=== PATIENT | female | born 1960 | race Two or more races ===

== ENCOUNTER 2020-06-24 20:01 | Inpatient (IN) | payer MEDICAID, OTHER ==
[~2020-06-24] VITALS: Ht 167.6 cm; Wt 64.4 kg
[2020-06-24] MEDS ORDERED: IV NS 0.9% 1,000 ML IV ONE ×2 (20:30→22:00)
[2020-06-24] MEDS ORDERED: CEFTRIAXONE 1GM BAG (ER ONLY) 50 ML IV ONE ×2 (20:30→21:44)
--- NOTE | 2020-06-24 20:50 | NUR ---
[facility]IBRA FROM SNF TO ER BED 5. AWAKE, NON VERBAL. IN MOD RESP DISTRESS. GASPING AND DEEP BREATHING. BROUGHT IN FOR C/O DESATURATION REPROTED @ 86% ON RA AT THE FACILITY. PT ARRIVE AT THE HOSPITAL ON NON REBREATHER MASK ON FULL 02 SATTING 96%. PT IS ALSO REPORTED AT 450, BS UPON ARRIVAL WAS 297. PT IS ALSO NOTED HYPOTHERMIC @ 89.5F RECTALLY. PLACED ON BEAR HUGGER. PT IS PLACED ON HIGH FLOW O2, SATTING @ 97%. PT IS NOTED WITH A WOUND ON THE LEFT THIGH, SACRAL ULCER AND BILAT HEEL PRESSURE INJURY. WAS AT THE BEDSIDE FOR EVAL. ORDERS RECEIVED NOTED AND CARRIED OUT. IV LINE ESTABLISHED ON R HAND 22G. BLOOD DRAWN BY HIGH SCHOOL BAND TEACHER.
[2020-06-24 21:07] LABS: BASOPHILS # (AUTO) 0.1 /CMM (0.0-0.2); BASOPHILS % (AUTO) 0.4 % (0.0-2.0); HEMATOCRIT 31 % (33-45); HEMOGLOBIN 9.2 g/dL (11.5-14.8); LYMPHOCYTES # (AUTO) 1.4 /CMM (0.8-4.8); LYMPHOCYTES % (AUTO) 5.2 % (20.0-44.0); MEAN CORPUSCULAR HGB CONC 29 g/dl (31.0-36.0); MEAN CORPUSCULAR VOLUME 106 fL (82-100); MONOCYTES # (AUTO) 0.4 /CMM (0.1-1.30); MONOCYTES % (AUTO) 1.6 % (2.0-12.0); NEUTROPHILS # (AUTO) 24.4 /CMM (1.8-8.9); NEUTROPHILS % (AUTO) 92.8 % (43.0-81.0); PLATELET COUNT (AUTO) 59 /CMM (150-450); RED BLOOD CELL COUNT(AUTO) 2.95 MIL/uL (4.0-5.2); WHITE BLOOD COUNT (AUTO) 26.3 K/uL (4.3-11.0)
--- NOTE | 2020-06-24 21:14 | NUR ---
CALLED [facility], PAGED DR RAYA
[2020-06-24 21:21] LABS: CALCIUM, SERUM 8.4 mg/dL (8.5-10.1); CARBON DIOXIDE 16 mmol/L (21-32); CHLORIDE 114 mmol/L (98-107); CREATININE 3.7 mg/dL (0.6-1.3); GLUCOSE 338 mg/dL (74-106); POTASSIUM 4.2 mmol/L (3.5-5.1); SODIUM SERUM 145 mmol/L (136-145); UREA NITROGEN, BLOOD 46 mg/dL (7-18)
[2020-06-24 21:35] LABS: ALANINE AMINOTRANSFERASE 32 U/L (12-78); ALKALINE PHOSPHATASE 217 U/L (46-116); ASPARTATE AMINOTRANSFERASE 70 U/L (15-37); B-TYPE NATRIURETIC PEPTIDE 1836 PG/ML (0-125); BILIRUBIN,DIRECT 0.3 mg/dL (0.0-0.2); BILIRUBIN,TOTAL 0.6 mg/dL (0.2-1.0); TOTAL PROTEIN, SERUM 7.6 g/dL (6.4-8.2)
[2020-06-24 21:38] LABS: ALBUMIN 1.1 g/dL (3.4-5.0)
[2020-06-24] MEDS ORDERED: VANCOMYCIN 1 GM VIAL ONE (21:44)
[2020-06-24] MEDS ORDERED: PIPERACILLIN /TAZOBACTAM 3.375 G VIAL IV ONE (21:44)
--- NOTE | 2020-06-24 21:51 | NUR ---
DR. HO SPEAKING WITH TESFAYE (SON) VIA TELEPHONE REGARDING PLAN OF CARE
[2020-06-24 22:00] LABS: APPEARANCE,URINE Turbid (CLEAR); BILIRUBIN,URINE Negative (NEGATIVE); BLOOD, URINE Large Ery/uL (NEGATIVE); COLOR,URINE Yellow (YELLOW); KETONES,URINE Negative (NEGATIVE); LEUKOCYTE ESTERASE ,URINE Small (NEGATIVE); NITRITE, URINE Negative (NEGATIVE); PROTEIN,URINE >=300 mg/dl (NEGATIVE); UGLUCOSE Negative (NEGATIVE); UROBILINOGEN,URINE 0.2 EU/dL (0.2)
[2020-06-24] MEDS ORDERED: VANCOMYCIN 1 GM in IV D5W 250 ML IV ONE (22:00)
[2020-06-24] MEDS ORDERED: PIPERACILLIN /TAZOBACTAM 3.375 G in IV D5W 50 ML IV ONE (22:00)
[2020-06-24 22:03] LABS: BACTERIA,URINE 3+ /HPF (None Seen); RBC,URINE 21-50 /HPF (0-2); SQUAMOUS EPITHELIAL CELL,UR Few /HPF (None Seen)
[2020-06-24 22:04] LABS: YEAST,URINE Many /HPF (None Seen)
[2020-06-24 22:11] LABS: BAND % (MANUAL) 13 % (0.0-5.0); LYMPHOCYTES % (MANUAL) 5 % (16-48); MONOCYTES % (MANUAL) 1 % (0-11.0); NEUTROPHILS % (MANUAL) 81 (42-76)
--- NOTE | 2020-06-24 22:15 | NUR ---
DR. HO SPEAKING WITH DR. MORENO REGARDING ADMISSION
[2020-06-24] MEDS ORDERED: GABA-532 GT (22:20)
[2020-06-24] MEDS ORDERED: LACT10SO GT (22:20)
[2020-06-24] MEDS ORDERED: CRAN1CAP6 GT (22:20)
[2020-06-24] MEDS ORDERED: DOCU-141 GT (22:20)
[2020-06-24] MEDS ORDERED: MAGN400O21 GT (22:20)
[2020-06-24] MEDS ORDERED: ZINC50TA39 GT (22:20)
[2020-06-24] MEDS ORDERED: NA P133E RC (22:20)
[2020-06-24] MEDS ORDERED: CRAN3875 GT (22:20)
[2020-06-24] MEDS ORDERED: INSU100V39 SQ (22:20)
[2020-06-24] MEDS ORDERED: INSU100V7 SQ (22:20)
[2020-06-24] MEDS ORDERED: DOCU-159 RC (22:20)
[2020-06-24] MEDS ORDERED: MULT-754 GT (22:20)
[2020-06-24] MEDS ORDERED: IV NS 0.9% 1,000 ML IV PRN (22:28)
[2020-06-24] MEDS ORDERED: ONDANSETRON HCL/PF 4 MG/2 ML VIAL IVP PRN (22:30)
[2020-06-24] MEDS ORDERED: Z GUARD REMEDY 2 OZ OINT TP PRN (22:30)
[2020-06-24] MEDS ORDERED: ACETAMINOPHEN 650 MG/SUPP.RECT RC PRN (22:30)
[2020-06-24] MEDS ORDERED: MORPHINE SULFATE INJ 2 MG/ML DISP.SYRIN IV PRN (22:30)
--- NOTE | 2020-06-24 22:30 | NUR ---
PT NOTED WITH O2 ST @ 85% DESPITE BEING ON HI FLOW O2. MD MADE AWARE. RT NOTIFIED. PLACED ON O2 VIA NON REBREATHER @ 15LPM.
--- NOTE | 2020-06-24 22:47 | NUR ---
READY FOR INTUBATION, RN, RT AND MD AT BEDSIDE BP: 93/45, HR: 78, RR:23, 02: 88%,
--- NOTE | 2020-06-24 22:48 | NUR ---
ETOMIDATE 20MG IVP X 1
--- NOTE | 2020-06-24 22:49 | NUR ---
SUCCICHOLINE 120MG IVP X 1
--- NOTE | 2020-06-24 22:50 | NUR ---
VENT SETTING: AC14, VT450, O2 100%, +5PEEP.
--- NOTE | 2020-06-24 22:51 | NUR ---
PT INTUBATED. 22 @ LIP ET 7.5 BILAT LUNG SOUND APPRECIATED
--- NOTE | 2020-06-24 22:53 | NUR ---
PT IS ON BILAT SOFT RESTRAINT TO PREVENT DECANULATION
[2020-06-24] MEDS ORDERED: MEROPENEM 500 MG in IV NS 0.9% 50 ML IV ONE (23:30)
[2020-06-24 23:42] LABS: C-REACTIVE PROTEIN 11.7 mg/dL (0.0-0.9)
--- NOTE | 2020-06-24 23:44 | NUR ---
SWAB DONE AND SENT TO LAB
[2020-06-25] VITALS (78 sets, daily range): BP systolic 24–151; BP diastolic 14–92
[2020-06-25] MEDS ORDERED: NOREPINEPHRINE 4 MG/4 ML AMPUL IV ONE (01:10)
--- NOTE | 2020-06-25 01:14 | NUR ---
STARTED LEVOPHED PER VERBAL MD ORDER, 13.77 ML/HR L UPPER ARM 20G. CALLED NURSING SUP FOR PICC LINE INSERTION.
--- NOTE | 2020-06-25 02:05 | NUR ---
ATTEMPTED TO GIVE REPORT FOR ICU 254, WILL FOLLOW UP
--- NOTE | 2020-06-25 02:56 | NUR ---
REPORT GIVEN TO COLE GUDINO FOR ALEJA
--- NOTE | 2020-06-25 03:15 | NUR ---
DRILLING FLUIDS SPECIALIST ADMISSION NOTES, RECEIVED 66 YEAR OLD FEMALE ADMITTED FROM ER DEPARTMENT IN COMPANY OF 2NURSES AND 2 RTS, PATIENT ON MECHANICAL VENTILATOR, INTUBATED IN ER, UNDER MEDICAL CARE OF DR DOROTA COOK, WITH ADMITTING DX, SEPSIS/PNA/UTI/ACUTE RENAL FAILURE, PATIENT OBTUNDED, WITH EYES SEMI OPEN UNABLE TO TRACK AND UNABLE TO MAKE NEEDS KNOW, ON MECHANICAL VENTILATOR INTUBATED IN ER, TRACH/ETT 23/7.4, AC 14, TV 450, FI02 100%, PEEP 5, SR IN IP LITIGATION PARALEGAL, PIV LINE IN MARACNO 20G AND RIGHT HAND 22G BOTH PATENT AND INTACT, WITH LEVO INFUSING AT 02MCG AT HIS TIME TO MAINTAIN THE BLOOD PRESSURE, PATIENT WITH MULTIPLE WOUNDS, WILL PUT WOUND CONSULT TO F/U WITH TREATMENT, NOTED WITH LIQUID STOOL AND ORDER FOR FLEXISEAL REQUEST, F/O IN PLACED DRAINING YELLOW THICK AND SEDIMENTS IN URINE BY GRAVITY, BATH PROVIDED, AND ALL NEEDS RENDERED, S/R OF BED UP, BED LOW AND IN LOWEST POSITION, CALL LIGHT W/I REACH, WILL CONTINUE TO MONITOR CLOSELY. Addendum: 06/25/20 at 0741 by JESSICA WHITING RN 60 YEAR OLD FEMALE, PATIENT WITH TRACH ETT/7.5, WITH LEVO AT 0.2 MCG
--- NOTE | 2020-06-25 03:16 | NUR ---
PT TRANSFERRED TO ICU 254 PER ACLS PROTOCOL. RT, RN, TECH AT BEDSIDE
[2020-06-25] MEDS ORDERED: MEROPENEM 500 MG VIAL IV ONE (03:47)
[2020-06-25] MEDS ORDERED: NOREPINEPHRINE 8 MG in IV NS 0.9% 242 ML IV PRN (05:00)
--- NOTE | 2020-06-25 07:29 | NUR ---
DIANETICIST NOTES, PATIENT CONTINUE ON MECHANICAL VENTILATOR INTUBATED IN ER, TRACH/ETT 22/7.5, AC 14, TV 450, FI02 100%, PEEP 5, SR IN GROUNDWATER CONSULTANT WITH HR 90S AT THIS TIME, , PIV LINE IN MARCANO 20G AND RIGHT HAND 22G BOTH PATENT AND INTACT, WITH LEVO INFUSING AT 0.2 MCG AT HIS TIME , ALL NEEDS RENDERED, S/R OF BED UP, BED LOW AND IN LOWEST POSITION, CALL LIGHT W/I REACH, ENDORSED TO KATALINA RN FOR CONTINUATION OF CARE.
--- NOTE | 2020-06-25 07:30 | NUR ---
RN OPENING NOTES, PATIENT IS ON MECHANICAL VENTILATOR INTUBATED IN ER, TRACH/ETT 22/7.5, AC 14, TV 450, FI02 100%, PEEP 5, SR IN MIX CRUSHER OPERATOR WITH HR 90S AT THIS TIME, , PIV LINE IN MARCANO 20G AND RIGHT HAND 22G BOTH PATENT AND INTACT,AND WELL FLUSHED WITH LEVO INFUSING AT 0.4 MCG AT HIS TIME SAFETY MEASUREMENTS ARE IMPLEMENTED BY HOSPITAL POLICY. BED IS IN THE LOWEST POSITION, SIDE RAIL ARE UP X2.CALL LIGHT W/I REACH. WILL CONTUNIE TO MONITOR
--- NOTE | 2020-06-25 07:45 | NUR ---
RN NOTE CALLED FAMILY SON MIRNA TO GET VERBAL CONSENT SIGN FOR PICC LINE. SIGNED CONSENT IN THE CHART
[2020-06-25] MEDS: NOREPINEPHRINE 8 MG in IV NS 0.9% 242 ML IV PRN ×4 (07:48→23:16)
--- NOTE | 2020-06-25 07:58 | NUR ---
RT PATIENT REC'D ORALLY INTUBATED ON [facility] VENT WITH ORDERED SETTINGS. ABG DONE AND RESULTS GIVEN TO COLE DARDEN. FIO2 TITRATED TO 80%. PATIENT IN CRITICAL CONDITION. AMBU BAG AT HOB Addendum: 06/25/20 at 1056 by FLORECITA CHAVEZ RT Amended: Links added.
--- NOTE | 2020-06-25 08:10 | NUR ---
RN NOTES AFTER INTUBATION ABG WAS DRAWN TODAY. AND SETTING WAS CHANGED BY RT JONY DECREASE FIO2 TO 80% AND NO PEEP. CALLED DR JUNIOR LAUREN TO INFORM ORDERED TO GIVE BICARB AND RE TAKE ABG AFTER 30 MIN.
[2020-06-25 08:14] LABS: ABG BASE EXCESS -16.8 mmol/L; ABG OXYGEN SATURATION 96.6 % (92.0-98.5); ABG PCO2 36.6 mmHg (35.0-45.0); ABG PH 7.117 (7.350-7.450); ABG PO2 102.9 mmHg (75.0-100.0); AaDO2 573.5 mmHg; COHb 0.3 % (0.5-1.5); MetHb 0.2 % (0.0-1.5); O2Hb 96.1 % (94.0-97.0); SITE, ABG Right Radial
[2020-06-25] MEDS ORDERED: ETOMIDATE 2 MG/ML VIAL ONE (08:56)
[2020-06-25] MEDS ORDERED: SUCCINYLCHOLINE CHLORIDE 20 MG/ML VIAL ONE (08:56)
[2020-06-25] MEDS ORDERED: SODIUM BICARBONATE SYR 50 MEQ/50 ML DISP.SYRIN IV ONE (09:00)
[2020-06-25] MEDS: PANTOPRAZOLE 40 MG VIAL IV SCH (09:00)
[2020-06-25] MEDS: HYDROCORTISONE SOD SUCCINATE 100 MG/2 ML VIAL IV SCH ×2 (09:33→17:35)
--- NOTE | 2020-06-25 09:48 | NUR ---
RN NOTE BICARB WAS GIVEN AND ABG IS DONE WITH NO SIGNIFICANT CHANGES INFORMED DR JUNIOR LAUREN.
[2020-06-25 09:53] LABS: ABG BASE EXCESS -14.7 mmol/L; ABG OXYGEN SATURATION 92.2 % (92.0-98.5); ABG PCO2 36.3 mmHg (35.0-45.0); ABG PH 7.167 (7.350-7.450); ABG PO2 73.2 mmHg (75.0-100.0); AaDO2 459.1 mmHg; COHb 0.3 % (0.5-1.5); MetHb 0.3 % (0.0-1.5); O2Hb 91.6 % (94.0-97.0); SITE, ABG Right Brachial
--- NOTE | 2020-06-25 10:21 | NUR ---
RN NOTE WAITING FOR ANY FUTURE ORDERS FROM DR JUNIOR LAUREN
--- NOTE | 2020-06-25 12:00 | NUR ---
RN NOTES GOT ON ORDER FOR BICARBONATE IV TO START
--- NOTE | 2020-06-25 12:38 | NUR ---
RN NOTES CALLED PHARMACY AND SPOKE WITH [place]ES PHARMACIST FOR BICARBONATE IV
[2020-06-25] MEDS: MEROPENEM 500 MG in IV NS 0.9% 50 ML IV SCH (12:54)
--- NOTE | 2020-06-25 13:00 | NUR ---
RN NOTES NG TUBE INSERTED. DON'T PUT FLUSH SNYTHING UNTILL CHEST X RAY IS DONE
--- NOTE | 2020-06-25 13:27 | NUR ---
RN NOTES JUST BROUGHT BICARBONATE IV GOING TO START.
--- NOTE | 2020-06-25 13:28 | NUR ---
N NOTE BARE BumpTop MACHINE IS NOT WORKING CALLED [facility] HAVE TO BRING ANOTHER ONE
[2020-06-25] MEDS: Sodium Bicarbonate 100 MEQ in IV D5W 1,000 ML IV PRN (13:30)
[2020-06-25 14:32] LABS: ABG OXYGEN SATURATION 81.8 % (92.0-98.5); ABG PCO2 39.6 mmHg (35.0-45.0); ABG PH 7.043 (7.350-7.450); ABG PO2 57.7 mmHg (75.0-100.0); AaDO2 471.1 mmHg; COHb 0.1 % (0.5-1.5); MetHb 0.2 % (0.0-1.5); O2Hb 81.6 % (94.0-97.0); SITE, ABG Right Brachial; VENT MODE, BG ac 14 450 80% +0
--- NOTE | 2020-06-25 14:38 | NUR ---
RN CROW LEWIS IS HERE TO GET ABG TEST AND AFTER THE TEST CALLED AND TALKED TO JUNIOR LAUREN IN REGARDS TO INCREASE THE RATE TO 244 AND FIO2 TO 550. SHE SAID OK TO CHANGE THE SETTINGS.
--- NOTE | 2020-06-25 14:41 | NUR ---
RT PER LUNCHROOM ATTENDANT XIN ORDER PATIENT VENT SETTINGS CHANGED TO 24, 550, 100% +0. RN KATALINA AWARE Addendum: 06/25/20 at 1442 by FLORECITA CHAVEZ RT Amended: Links added.
--- NOTE | 2020-06-25 15:45 | NUR ---
RN NOTES DR STOKES RADIOLOGIST CALLED STATING THAT PICC LINE NEEDS TO BE PULLED BACK @2.5 CM AND ET TUBE NEEDS TO BE PULLED BACK 3 CM . NOTIFIED RT ENRIQUEZ PICC LINE NURSE
--- NOTE | 2020-06-25 17:15 | NUR ---
RT PER XIN PACHECO LAND SURVEYING MANAGER ETT RETRACTED 2CM AND SECURED AT 21CM AT THE LIP. RN KATALINA NOTIFIED
[2020-06-25] MEDS: THERAHONEY GEL 1.5 OZ TUBE TP SCH (17:21)
[2020-06-25] MEDS: DAKINS QUARTER STRENGTH (0.125%) 480 ML BOTTLE TOP SCH (17:21)
--- NOTE | 2020-06-25 17:22 | NUR ---
RN NOTE ETT RETRACTED 2CM AND SECURED AT 21CM AT THE LIP.
--- NOTE | 2020-06-25 19:08 | NUR ---
RN CLOSING NOTES, PATIENT IS ON MECHANICAL VENTILATOR INTUBATED IN ER, TRACH/ETT 21/7.5, AC 14, TV 450, FI02 100%, PEEP 5, SR IN POLICE PATROL OFFICER WITH HR 90S AT THIS TIME, , PIV LINE IN MARCANO 20G AND RIGHT HAND 22G. PICC LINE ON THE LEFT SIDE IS FLUSHING WELL, INTACT AND NO INFILTRATION NOTED. BOTH PATENT AND INTACT,AND WELL FLUSHED WITH LEVO INFUSING AT 0.5 MCG AT HIS TIME SAFETY MEASUREMENTS ARE IMPLEMENTED BY HOSPITAL POLICY. BED IS IN THE LOWEST POSITION, SIDE RAIL ARE UP X2.CALL LIGHT W/I REACH. WILL ENDORSE TO NIGHTSHIFTS FOR ALEJA
--- NOTE | 2020-06-25 19:30 | NUR ---
DATA CAPTURE CLERK OPENING NOTES, RECEIVED PATIENT IN BED INTUBATED/NOT SEDATED, TOLERATING VENT SETTING WELL. NO SOB OR ACUTE DISTRESS NOTED AT THIS TIME. NOTED BP LOW AND THE LEVO WAS RAISED TO 0.5MCG/KG/MIN BY AM RN. SINUS RHYTHM ON BED SIDE MONITOR. IV ON L UPPER ARM#20 RUNNING 0.5 MCG/KG/MIN AND SODIUM BICARB AT 75 ML/HR. AND RIGHT UPPER ARM PICC LINE AND RIGHT HAND #22. PATENT AND FLUSHING WELL. ALL SAFETY IMPLANTED, BED IN LOW/LOCKED POSITION CALL LIGHT WITHIN REACH WILL CONTINUE TO MONITOR.
[2020-06-25] MEDS: MICAFUNGIN SODIUM 100 MG in IV NS 0.9% 100 ML IV SCH (20:04)
[2020-06-25 20:45] LABS: BASOPHILS % (AUTO) 0.1 % (0.0-2.0); EOSINOPHILS % (AUTO) 0.1 % (0.0-6.0); HEMATOCRIT 28 % (33-45); HEMOGLOBIN 8.3 g/dL (11.5-14.8); LYMPHOCYTES # (AUTO) 2.6 /CMM (0.8-4.8); LYMPHOCYTES % (AUTO) 11.1 % (20.0-44.0); MEAN CORPUSCULAR HGB CONC 29 g/dl (31.0-36.0); MEAN CORPUSCULAR VOLUME 107 fL (82-100); MONOCYTES # (AUTO) 0.5 /CMM (0.1-1.30); NEUTROPHILS # (AUTO) 20.2 /CMM (1.8-8.9); NEUTROPHILS % (AUTO) 86.7 % (43.0-81.0); PLATELET COUNT (AUTO) 51 /CMM (150-450); RED BLOOD CELL COUNT(AUTO) 2.66 MIL/uL (4.0-5.2)
[2020-06-25] MEDS: PHENYLEPHRINE 100 MG in IV NS 0.9% 240 ML IV PRN (20:52)
[2020-06-25 20:56] LABS: CALCIUM, SERUM 7.8 mg/dL (8.5-10.1); CREATININE 3.7 mg/dL (0.6-1.3); MAGNESIUM 2.4 mg/dL (1.8-2.4); PHOSPHORUS 6.5 mg/dL (2.5-4.9); POTASSIUM 4.4 mmol/L (3.5-5.1)
[2020-06-25 21:31] LABS: BAND % (MANUAL) 12 % (0.0-5.0); LYMPHOCYTES % (MANUAL) 3 % (16-48); METAMYELOCYTES % 3 % (0-0); MONOCYTES % (MANUAL) 1 % (0-11.0)
[2020-06-25 21:43] LABS: D-DIMER 9.57 mg/L(FEU (0.17-0.50)
[2020-06-25 21:48] LABS: WHITE BLOOD COUNT (AUTO) 23.2 K/uL (4.3-11.0)
[2020-06-25 21:50] LABS: NEUTROPHILS % (MANUAL) 81 (42-76)
--- NOTE | 2020-06-25 23:15 | NUR ---
PATIENT BP LOW, 75/44 @2014. LEVO WAS RAISED BY PROTOCOL TO THE MAX. BP STILL LOW 60/25. DR RAYA WAS CONTACTED. SARATH WAS ORDER AND STARTED AT 2052 @0.1 MCG/KG/MIN AND LOWERED TO 0.05 AT 2200 WITH THE BP OF 133/64. NEW WAS HOLD AT 2245 WITH THE BP OF 133/57. LEVO WAS LOWERED TO 0.8 AT 2300 AND BP STABLE, SYSTOLIC >90. PATIENT IS IN NO DISTRESS AND NO SOB NOTED, WILL CONTINUE TO MONITOR THE PATENT CLOSELY.
[2020-06-26] VITALS (52 sets, daily range): BP systolic 53–125; BP diastolic 26–85
[2020-06-26] MEDS: HYDROCORTISONE SOD SUCCINATE 100 MG/2 ML VIAL IV SCH ×3 (01:22→18:23)
[2020-06-26] MEDS: MEROPENEM 500 MG in IV NS 0.9% 50 ML IV SCH ×2 (01:22→14:09)
--- NOTE | 2020-06-26 02:00 | NUR ---
PATIENTS BP IS STABLE. LEVO IS RUNNING AT 0.8 MCG/KG/MIN. SARATH IS STILL ON HOLD. NO SOB OR ACUTE DISTRESS NOTED. WILL CONTINUE TO MONITOR THE PATIENT CLOSELY.
[2020-06-26] MEDS: NOREPINEPHRINE 8 MG in IV NS 0.9% 242 ML IV PRN ×2 (02:30→05:29)
[2020-06-26] MEDS ORDERED: NOREPINEPHRINE 8MG/250ML RTU 250 ML IV ONE (04:41)
[2020-06-26 06:55] LABS: BASOPHILS # (AUTO) 0.1 /CMM (0.0-0.2); BASOPHILS % (AUTO) 0.2 % (0.0-2.0); HEMATOCRIT 27 % (33-45); HEMOGLOBIN 7.6 g/dL (11.5-14.8); LYMPHOCYTES # (AUTO) 2.9 /CMM (0.8-4.8); LYMPHOCYTES % (AUTO) 8.7 % (20.0-44.0); MEAN CORPUSCULAR HGB CONC 28 g/dl (31.0-36.0); MEAN CORPUSCULAR VOLUME 110 fL (82-100); MONOCYTES % (AUTO) 3.1 % (2.0-12.0); NEUTROPHILS # (AUTO) 29.1 /CMM (1.8-8.9); PLATELET COUNT (AUTO) 58 /CMM (150-450); RED BLOOD CELL COUNT(AUTO) 2.45 MIL/uL (4.0-5.2)
--- NOTE | 2020-06-26 06:55 | NUR ---
DUPLIGRAPH OPERATOR CLOSING NOTES, PATIENT IN BED INTUBATED/NOT SEDATED, TOLERATING VENT SETTING WELL. NO SOB OR ACUTE DISTRESS NOTED AT THIS TIME. SINUS RHYTHM ON BED SIDE MONITOR. BP IS STABLE WITH LEVO RATE OF 0.8 MCG/KG/MIN TO RIGHT UPPER ARM PICC LINE. IV ON L UPPER ARM#20, AND, RIGHT HAND #22 RUNNING SODIUM BICARB AT 75 ML/HR. PATENT AND FLUSHING WELL. CRITICAL LAB VALUES FROM LAB WAS DOCUMENTED AND WAS NOTIFIED. NO NEW ORDERS WERE PLACED. PATIENT WAS KEPT CLEAN AND DRY DURING MECHANICAL SYSTEM TECHNICIAN. ALL SAFETY IMPLANTED, BED IN LOW/LOCKED POSITION CALL LIGHT WITHIN REACH . WILL ENDORSE THE PATIENT TO AM RN FOR ALEJA.
--- NOTE | 2020-06-26 07:00 | NUR ---
ASSOCIATE AUTOMATION ENGINEER CLOSING NOTES, PATIENT IN BED INTUBATED/NOT SEDATED, TOLERATING VENT SETTING WELL. NO SOB OR ACUTE DISTRESS NOTED AT THIS TIME. SINUS RHYTHM ON BED SIDE MONITOR. BP IS STABLE WITH LEVO RATE OF 0.8 MCG/KG/MIN TO RIGHT UPPER ARM PICC LINE. IV ON L UPPER ARM#20, AND, RIGHT HAND #22 RUNNING SODIUM BICARB AT 75 ML/HR. PATENT AND FLUSHING WELL. CRITICAL LAB VALUES FROM LAB WAS DOCUMENTED AND WAS NOTIFIED. NO NEW ORDERS WERE PLACED. PATIENT WAS KEPT CLEAN AND DRY DURING DAY SHIFT . BED LOCKED LOWEST POSITION CALL LIGHT WITH IN REACH ALL SAFETY MEASURES IMPLEMENTED PER HOSPITAL POLCIY
[2020-06-26] MEDS: Sodium Bicarbonate 100 MEQ in IV D5W 1,000 ML IV PRN (07:07)
[2020-06-26 07:11] LABS: WHITE BLOOD COUNT (AUTO) 33.1 K/uL (4.3-11.0)
[2020-06-26 08:15] LABS: ABG BASE EXCESS -24.3 mmol/L; ABG OXYGEN SATURATION 92.5 % (92.0-98.5); ABG PCO2 27.2 mmHg (35.0-45.0); ABG PH 6.957 (7.350-7.450); ABG PO2 83.1 mmHg (75.0-100.0); AaDO2 602.7 mmHg; COHb 0.3 % (0.5-1.5); MetHb 0.5 % (0.0-1.5); O2Hb 91.8 % (94.0-97.0); SITE, ABG Right Radial
[2020-06-26 08:17] LABS: ALANINE AMINOTRANSFERASE 20 U/L (12-78); ALBUMIN 3.8 g/dL (3.4-5.0); ALKALINE PHOSPHATASE 85 U/L (46-116); ASPARTATE AMINOTRANSFERASE 25 U/L (15-37); BILIRUBIN,TOTAL 0.4 mg/dL (0.2-1.0); CALCIUM, SERUM 8.2 mg/dL (8.5-10.1); CARBON DIOXIDE 22 mmol/L (21-32); CHLORIDE 109 mmol/L (98-107); CREATININE 0.8 mg/dL (0.6-1.3); GLUCOSE 101 mg/dL (74-106); PHOSPHORUS 2.8 mg/dL (2.5-4.9); POTASSIUM 3.8 mmol/L (3.5-5.1); SODIUM SERUM 147 mmol/L (136-145); TOTAL PROTEIN, SERUM 6.7 g/dL (6.4-8.2); UREA NITROGEN, BLOOD 10 mg/dL (7-18)
--- NOTE | 2020-06-26 08:20 | NUR ---
RT PATIENT REC'D ORALLY INTUBATED ON [facility] VENT WITH ORDERED SETTINGS. ABG DONE AND RESULTS GIVEN TO DR SOL PATIENT IN CRITICAL CONDITION. VINAYU BAG AT HOB Addendum: 06/26/20 at 1655 by FLORECITA CHAVEZ RT Amended: Links added.
--- NOTE | 2020-06-26 08:21 | NUR ---
REFRIGERATION TECHNICIAN - DR SOL. PER ORDER FACE TO FACE. 2 AMP BICARB IV PUSH NOW CHANGE IV FROM 2 AMP BICARB TO 3 AMP BICARB D5W 100C ML /HR FACE TO FACE READ BACK
[2020-06-26] MEDS: NOREPINEPHRINE 32 MG in IV NS 0.9% 218 ML IV PRN ×2 (08:41→20:20)
[2020-06-26] MEDS ORDERED: SODIUM BICARBONATE SYR 50 MEQ/50 ML DISP.SYRIN IV ONE (09:00)
[2020-06-26] MEDS ORDERED: Sodium Bicarbonate 100 MEQ in IV D5W 1,000 ML IV PRN (09:00)
[2020-06-26] MEDS ORDERED: VANCOMYCIN 1 GM in IV D5W 250 ML IV SCH ×2 (09:00→21:00)
[2020-06-26] MEDS: PANTOPRAZOLE 40 MG VIAL IV SCH (09:16)
[2020-06-26] MEDS: DAKINS QUARTER STRENGTH (0.125%) 480 ML BOTTLE TOP SCH (09:17)
[2020-06-26] MEDS: THERAHONEY GEL 1.5 OZ TUBE TP SCH (09:17)
--- NOTE | 2020-06-26 11:00 | NUR ---
MICROSOFT INFRASTRUCTURE CONSULTANT - FAMILY VISITED ICU
--- NOTE | 2020-06-26 12:00 | NUR ---
SCREENING TECH - TALKED TO FAMILY ABOUT PATIENT CODE STATUS. . PRIMARY AND PULMO MADE AWARE.
--- NOTE | 2020-06-26 12:15 | NUR ---
SCRUBBER MACHINE TENDER - FAMILY DECISION ( YOUNGEST SON CRISTY - [phone] ) AND OTHER FAMILY MEMBERS ARE OKAY TO CHANGE CODE STATUS TO COMFORT MEASURE ONLY - PRIMARY AND PULMO MADE AWARE OF DECISION
[2020-06-26] MEDS ORDERED: LORAZEPAM INJ 2 MG/ML VIAL IV PRN (13:30)
[2020-06-26] MEDS ORDERED: SODIUM BICARBONATE SYR 50 MEQ/50 ML DISP.SYRIN IV PRN (13:30)
--- NOTE | 2020-06-26 13:44 | NUR ---
CLOCK AND WATCH HANDS DIPPER - CALLED [facility] CHANGE OF CODE STATUS
[2020-06-26 14:00] LABS: BAND % (MANUAL) 18 % (0.0-5.0); LYMPHOCYTES % (MANUAL) 1 % (16-48); MONOCYTES % (MANUAL) 3 % (0-11.0); MYELOCYTES % 1 % (0-0); NEUTROPHILS % (MANUAL) 77 (42-76)
--- NOTE | 2020-06-26 15:56 | NUR ---
BREASTFEEDING PEER COUNSELOR - [facility] - REF [id number] FAMILY WAS NOT INTERESTED.
[2020-06-26 18:17] LABS: BILIRUBIN,TOTAL 1.1 mg/dL (0.2-1.0); CALCIUM, SERUM 7.6 mg/dL (8.5-10.1); POTASSIUM 4.7 mmol/L (3.5-5.1); TOTAL PROTEIN, SERUM 5.5 g/dL (6.4-8.2)
[2020-06-26 18:20] LABS: ALBUMIN 0.7 g/dL (3.4-5.0)
--- NOTE | 2020-06-26 18:56 | NUR ---
TIER IN CLOSING NOTES, PATIENT IN BED INTUBATED/NOT SEDATED, TOLERATING VENT SETTING WELL. NO SOB OR ACUTE DISTRESS NOTED AT THIS TIME. SINUS RHYTHM ON BED SIDE MONITOR. BP IS STABLE WITH LEVO RATE OF 0.2 MCG/KG/MIN TO RIGHT UPPER ARM PICC LINE. IV ON L UPPER ARM#20, AND, RIGHT HAND #22 RUNNING SODIUM BICARB 3 AMPS AT 100 ML/HR. PATENT AND FLUSHING WELL. CRITICAL LAB VALUES FROM LAB WAS DOCUMENTED AND WAS NOTIFIED. NO NEW ORDERS WERE PLACED. PATIENT WAS KEPT CLEAN AND DRY DURING DAY SHIFT. BED LOCKED LOWEST POSITION CALL LIGHT WITH IN REACH ALL SAFETY MEASURE IMPLEMENTED PER HOSPITAL POLICY
[2020-06-26] MEDS: Sodium Bicarbonate 150 MEQ in IV D5W 1,000 ML IV PRN (20:19)
--- NOTE | 2020-06-26 20:30 | NUR ---
CONCRETE PAVEMENT INSTALLER NOTES FIO2 TITRATED TO 90% BY RT ALVARES, WILL MONITOR PATIENT CLOSELY
[2020-06-26] MEDS ORDERED: IV NS 0.9% 250 ML IV PRN (21:00)
--- NOTE | 2020-06-26 21:00 | NUR ---
STRUCTURAL ENGINEER NOTES RECEIVED CALL FROM PATIENT'S FAMILY MEMBER DENILSON, REQUESTING FOR EXTUBATION TO BE HELD SHE WOULD LIKE TO VISIT THE PATIENT BEFORE TERMINAL EXTUBATION. DENILSON WILL ARRIVE ON Thursday06/28/20 IN THE AM. WILL NOTIFY MD REGARDING FAMILY WISHES Addendum: 06/26/20 at 2319 by PATRIC ALBARRAN RN XIN PACHECO NP NOTIFIED @ [id number] REGARDING FAMILY WISHES. NURSE SHEFFIELD MADE AWARE
[2020-06-26] MEDS: MICAFUNGIN SODIUM 100 MG in IV NS 0.9% 100 ML IV SCH (21:01)
--- NOTE | 2020-06-26 22:22 | NUR ---
REHABILITATION THERAPIST NOTES PATIENT ENDORSED TO NURSE SHEFFIELD FOR CONTINUITY OF CARE
--- NOTE | 2020-06-26 22:30 | NUR ---
MORTGAGE PROCESSOR NOTE ASSUMED CARE FOR THE PT. ON ETT/VENT TOLERATING THE SETTINGS WELL. OBTUNDED. NO DISTRESS OR DISCOMFORT NOTED. NO S/S OF PAIN NOTED. ON TEL SR HR 94. RECTAL TUBE INTACT AND PATENT DRAINING [place] STOOL, BROWN IN COLOR. F/C INTACT AND PATENT DRAINING CLOUDY URINE. PT IN ON IVF BICARB AT 100 ML/HR AND LEVA 1.0 MCG/KG/MIN AT DAMON PICC LINE. KEPT HER DRY AND CLEAN. VSS. REPOSITION HER FOR COMFORT AND SKIN MANAGEMENT. SIDE RAILS UP X 2 AND CALL LIGHT WITHIN REACH. CONTINUE TO MONITOR.
[2020-06-27] VITALS (27 sets, daily range): BP systolic 29–113; BP diastolic 17–71
[2020-06-27] MEDS: HYDROCORTISONE SOD SUCCINATE 100 MG/2 ML VIAL IV SCH ×2 (01:28→09:28)
[2020-06-27] MEDS: MEROPENEM 500 MG in IV NS 0.9% 50 ML IV SCH (01:28)
[2020-06-27] MEDS: NOREPINEPHRINE 32 MG in IV NS 0.9% 218 ML IV PRN ×2 (01:39→09:10)
[2020-06-27] MEDS: PHENYLEPHRINE 100 MG in IV NS 0.9% 240 ML IV PRN (04:24)
[2020-06-27 04:37] LABS: BASOPHILS # (AUTO) 0.2 /CMM (0.0-0.2); BASOPHILS % (AUTO) 0.7 % (0.0-2.0); EOSINOPHILS % (AUTO) 0.2 % (0.0-6.0); LYMPHOCYTES # (AUTO) 7.5 /CMM (0.8-4.8); LYMPHOCYTES % (AUTO) 21.2 % (20.0-44.0); MEAN CORPUSCULAR HGB CONC 27 g/dl (31.0-36.0); MEAN CORPUSCULAR VOLUME 116 fL (82-100); MONOCYTES # (AUTO) 0.9 /CMM (0.1-1.30); MONOCYTES % (AUTO) 2.5 % (2.0-12.0); NEUTROPHILS # (AUTO) 26.6 /CMM (1.8-8.9); NEUTROPHILS % (AUTO) 75.4 % (43.0-81.0)
[2020-06-27] MEDS: Sodium Bicarbonate 150 MEQ in IV D5W 1,000 ML IV PRN (04:42)
[2020-06-27 05:41] LABS: RED BLOOD CELL COUNT(AUTO) 1.73 MIL/uL (4.0-5.2)
[2020-06-27 05:42] LABS: CALCIUM, SERUM 7.5 mg/dL (8.5-10.1); CREATININE 4.2 mg/dL (0.6-1.3); HEMATOCRIT 20 % (33-45); MAGNESIUM 2.9 mg/dL (1.8-2.4)
[2020-06-27 05:43] LABS: HEMOGLOBIN 5.4 g/dL (11.5-14.8); PLATELET COUNT (AUTO) 39 /CMM (150-450); WHITE BLOOD COUNT (AUTO) 35.3 K/uL (4.3-11.0)
[2020-06-27 05:49] LABS: POTASSIUM 6.2 mmol/L (3.5-5.1)
[2020-06-27 05:51] LABS: PHOSPHORUS 10.5 mg/dL (2.5-4.9)
[2020-06-27 06:09] LABS: BAND % (MANUAL) 17 % (0.0-5.0); LYMPHOCYTES % (MANUAL) 15 % (16-48); NEUTROPHILS % (MANUAL) 65 (42-76); REACTIVE LYMPHOCYTES 3 % (0-0)
--- NOTE | 2020-06-27 06:10 | NUR ---
WEAVE ROOM SUPERVISOR NOTE RECEIVED ABNORMAL LABS WBC 35.3, HGB 5.4 HCT 20 PLATELET 39 C02 7 AND PHOS 10.5, OPERATOR PREFINISH JUNIOR INFORMED AND RECEIVED NEW ORDER, ORDER NOTED AND CARRIED.
[2020-06-27] MEDS ORDERED: VASOPRESSIN INJ 20 UNIT/ML VIAL ONE (06:15)
--- NOTE | 2020-06-27 06:15 | NUR ---
BLADDER TIER NOTE PT B/P IS 70/40 AND NOT COMING UP WITH SARATH 2.0 DAVID ENGINEER TECHNICAL STAFF KE INFORMED, RECEIVED NEW ORDER ORDER NOTED AND CARRIED OUT.
--- NOTE | 2020-06-27 06:25 | NUR ---
METAL BONDER NOTE SARATH MAX OUT AND INFUSING AT 3 MCG AT THIS TIME B/P IS STILL LOW IN 60"S. CHARGE NURSE DEEPIKA STARTED VASO AT 0.1 MCG DRIP. CONTINUE TO MONITOR. TRIED TO CALL FAMILY TESFAYE LEFT A MESSAGE FOR THE PT.
[2020-06-27] MEDS ORDERED: VASOPRESSIN INJ 40 UNIT in IV NS 0.9% 38 ML IV PRN (06:30)
--- NOTE | 2020-06-27 07:15 | NUR ---
BANANA LOADER NOTE PT B/P CAME UP TO SBP 90. REMAIN ON SARATH 3 MCG, LEVO 1 MCG, VASO 0.03 MCG, BICARB AT 100 ML/HR. ENDORSE TO DAY SHIFT NURSE IVAN FOR CONTINUE TO CARE.
--- NOTE | 2020-06-27 07:30 | NUR ---
ASSUMED CARE OF PATIENT AT THIS TIME. PT IS NON RESPONSIVE TO ANY STIMULI, MAX DOSE ON 3 PRESSORS. DNR/DNI. NO COUGH, NO GAG, NO PUPIL RESPONSE. WILL CONTINUE TO MONITOR.
[2020-06-27] MEDS: PANTOPRAZOLE 40 MG VIAL IV SCH (09:28)
[2020-06-27] MEDS: DAKINS QUARTER STRENGTH (0.125%) 480 ML BOTTLE TOP SCH (09:29)
[2020-06-27] MEDS: THERAHONEY GEL 1.5 OZ TUBE TP SCH (09:31)
[2020-06-27] MEDS ORDERED: VANCOMYCIN 1 GM in IV D5W 250 ML IV SCH ×4 (10:00)
--- NOTE | 2020-06-27 11:55 | NUR ---
RN NOTE PT DNR STATUS ON TRIPLE PRESSORS X 3. PT ASYSTOLIC, APNEIC. PRONOUNCED. NOTIFIED SON BY PHONE. NOTIFIED Ambrocio MONDRAGON DNP.
--- NOTE | 2020-06-27 11:56 | NUR ---
PT PULSES, NO CARDIAC ACTIVITY ON MONITOR, NO SIGNS OF LIFE. PT WAS PRONOUNCED AT 1156 BY PROGRAM AND RESEARCH COORDINATOR.
--- NOTE | 2020-06-27 12:05 | NUR ---
PT'S SON NOTIFIED OF PATIENTS , [facility], 'S, ADMITTING AND IMAGING CLERK ALL NOTIFIED. PT'S SON IS ON THE BUS ON THE WAY TO THE HOSPITAL.
--- NOTE | 2020-06-27 13:35 | NUR ---
PT'S SON ARRIVED, ALLOWED TO VISIT WITH PATIENTS BODY FOR A SHORT TIME.
[2020-06-27] MEDS ORDERED: VANCOMYCIN 500 MG in IV D5W 100 ML IV SCH (15:00)
== END 2020-06-27 18:10 | disposition expired | DRG 720 ==
LOC: ER 20:04 → TELE-TD 22:40 → ICU 06-25 01:06
PROVIDERS: ATTEND Nurse Practitioner Acute Care
PROC: 0BH17EZ Insertion of Endotracheal Airway into Trachea, Via Natural or Artificial Opening (ICD-10-PCS; principal; 2020-06-24)
PROC: 5A1945Z Respiratory Ventilation, 24-96 Consecutive Hours (ICD-10-PCS; principal; 2020-06-24)
PROC: 02HV33Z Insertion of Infusion Device into Superior Vena Cava, Percutaneous Approach (ICD-10-PCS; 2020-06-25)
PROC: B548ZZA Ultrasonography of Superior Vena Cava, Guidance (ICD-10-PCS; 2020-06-25)
DX: A41.9 Sepsis, unspecified organism (principal); J96.01 Acute respiratory failure with hypoxia; N17.0 Acute kidney failure with tubular necrosis; Z66 Do not resuscitate; Z51.5 Encounter for palliative care; Z86.73 Personal history of transient ischemic attack (TIA), and cerebral infarction without residual deficits; J18.9 Pneumonia, unspecified organism; D64.9 Anemia, unspecified; D69.6 Thrombocytopenia, unspecified; E43 Unspecified severe protein-calorie malnutrition; N39.0 Urinary tract infection, site not specified; D68.9 Coagulation defect, unspecified; E78.5 Hyperlipidemia, unspecified; L89.159 Pressure ulcer of sacral region, unspecified stage; L89.220 Pressure ulcer of left hip, unstageable; S71.102A Unspecified open wound, left thigh, initial encounter; X58.XXXA Exposure to other specified factors, initial encounter; Y92.9 Unspecified place or not applicable; L89.026 Pressure-induced deep tissue damage of left elbow; L98.9 Disorder of the skin and subcutaneous tissue, unspecified; E87.4 Mixed disorder of acid-base balance; E87.1 Hypo-osmolality and hyponatremia; E87.5 Hyperkalemia; M85.9 Disorder of bone density and structure, unspecified; R65.21 Severe sepsis with septic shock; L89.896 Pressure-induced deep tissue damage of other site; L89.616 Pressure-induced deep tissue damage of right heel; N18.9 Chronic kidney disease, unspecified; I12.9 Hypertensive chronic kidney disease with stage 1 through stage 4 chronic kidney disease, or unspecified chronic kidney disease; G92 Toxic encephalopathy; J98.11 Atelectasis; M89.9 Disorder of bone, unspecified; Y95 Nosocomial condition
CPT/HCPCS: 31720; 36415; 36600; 71045-TC; 80048-TC; 80053-TC; 80061-TC; 80076-TC; 80202-TC; 81000-TC; 82533; 82550-TC; 82728-TC; 82803-TC; 82962-TC; 83605-TC; 83615-TC; 83735-TC; 83880; 84100-TC; 84484-TC; 85025-TC; 85378-TC; 85385-TC; 85652-TC; 85730-TC; 86140-TC; 86850-TC; 87040-TC; 87081-TC; 93307-TC; 94002-TC; 94003-TC; 94760-TC; 94762-TC; 94799-TC; 99082-TC; A4217; A6253; A6403; C1751; C9113; G0378; J0330; J0696; J1720; J2185; J2248; J2370; J2543; J3370; J3490; J7030; J7050; J7060; J7070; U0003-CS